=== PATIENT | male | born 1995 | race Hispanic/Latino ===

== ENCOUNTER 2025-09-23 18:55 | Emergency (ER) | payer OTHER ==
[~2025-09-23] VITALS: Ht 167.6 cm; Wt 75.7 kg
[2025-09-23 19:16] VITALS: BP 154/74; PULSE 86; RESP 18; TEMP 98.7; O2SAT 98
[2025-09-23] MEDS: FAMOTIDINE 20MG VIAL IV ONE (19:27)
--- NOTE | 2025-09-23 20:02 | ERN ---
ED Note History of Present Illness Stated Complaint: ALLERGIC REACTION Chief Complaint: Allergic Reaction Time Seen by MD: 19:12 Time Seen by Midlevel: 19:13 Dictation: 30-year-old male who presents to the emergency department accompanied by law enforcement for medical clearance due to reported having allergic reaction. He states that he is not aware as to what could have contributed to this event. The patient states that he has some generalized itching. At this time, he denies having any difficulty breathing or difficulty swallowing. Upon initial evaluation, the patient presents in no acute respiratory distress. 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 Past Medical History Past Medical History: No Pertinent History Surgical History: Other Surgical History Other: SKIN GRAFT R FOREARM PSYCH History: no pertinent psych hx RN Note Reviewed/Agreed w/PFSH: Yes Review of System Dictation Constitutional: generalized itching Initial Vital Sign VS Vital Signs Date Time Temp Pulse Resp B/P (MAP) Pulse Ox O2 Delivery O2 Flow Rate FiO2 09/23/25 19:09 99.7 89 16 128/74 98 Room Air 0 09/23/25 19:16 21 Physical Exam Dictation General: awake, alert, NAD Head/Face: Normocephalic, atraumatic Eyes: PERRL, EOMI ENT: Oral mucosa moist Neck: Trachea midline, supple Cardiovascular: RRR, no edema Respiratory: Symmetrical, non-labored Abdomen: Soft, non-tender, non-distended, no guarding. Skin: Urticarial rash MS/Extremity: Pulses equal, no cyanosis, neurovascular intact, FROM Neuro: COAx4, GCS 15, steady gait, Psych: Normal behavior, mood, and affect normal ED Course ED Course Orders Procedure Category Date Status Time Famotidine 20mg Vial PHA 09/23/25 Complete (Pepcid 20mg Vial) 19:30 Diphenhydramine Hcl PHA 09/23/25 Complete (Benadryl Inj) 19:30 Dexamethasone 4mg/Ml PHA 09/23/25 Complete 1ml Vial (Dexametha 19:30 Diphenhydramine Hcl PHA 09/23/25 Complete (Benadryl Inj) 19:22 Current Medications Medications (Trade) Dose Ordered Sig/Darren Route PRN Reason Start Time Stop Time Status Last Admin Dose Admin Dexamethasone Sodium Phosphate (dexaMETHasone 4MG/ML 1ML VIAL) 8 mg ONCE ONCE IV 09/23/25 19:30 09/23/25 19:31 DC 09/23/25 19:26 Diphenhydramine HCl (BENAdryl INJ) 25 mg ONCE ONCE IV 09/23/25 19:30 09/23/25 19:31 DC 09/23/25 19:27 Diphenhydramine HCl (BENAdryl INJ) 50 mg STK-MED ONCE .ROUTE 09/23/25 19:22 09/23/25 19:22 DC Famotidine (Pepcid 20mg Vial) 20 mg ONCE ONCE IV 09/23/25 19:30 09/23/25 19:31 DC 09/23/25 19:27 Vital Signs Date Time Temp Pulse Resp B/P (MAP) Pulse Ox O2 Delivery O2 Flow Rate FiO2 09/23/25 19:16 98.8 86 18 154/74 98 Room Air* 0 21 09/23/25 19:09 99.7 89 16 128/74 98 Room Air 0 Medical Decision Making MDM MDM: Differential diagnosis: Acute allergic reaction, urticarial rash, contact dermatitis. Rationale: Tests considered and ordered secondary to shared decision making include: Previous outside records reviewed: Old ER visits. Risk of complication and/or morbidity or mortality of patient management: None Medications-Per medication reconciliation Need for hospitalization: Patient does not meet criteria for hospitalization. Need for emergency major/minor surgery: No There are no social concerns with this patient. Prescription drug management Prescriptions will include symptomatic care Patient's prior external medical records from other ER visits were reviewed by me as indicated. Prior testing and results from previous visits were reviewed. Prior tests were taken into account with medical decision making and resource utilization, independent historian/historians were used to obtain complete medical history. I independently interpreted the test that were performed, results were reviewed by me and considered findings on radiology if ordered. Medical management and examination interpretation discussions were had by me with other qualified healthcare professionals as indicated for the patient's care. DX & DISP Disposition: Discharge Departure Impression: Primary Impression: Allergic reaction Condition: Stable Time of Disposition: 20:02 GIANCARLO DIAZ Sep 23, 2025 20:02
== END 2025-09-23 20:09 | disposition home or self-care (01) ==
LOC: EDH 18:55 → EEVIPCON 18:55 → EDH 20:09
DX: T78.40XA Allergy, unspecified, initial encounter (principal); L29.9 Pruritus, unspecified; Z91.040 Latex allergy status; Z91.018 Allergy to other foods; Z91.013 Allergy to seafood; X58.XXXA Exposure to other specified factors, initial encounter
CPT/HCPCS: 99284; 96374; 96375; J1100; J1200; J1308